=== PATIENT | male | born 1980 | race Caucasian/White ===

== ENCOUNTER → 2021-03-02 | Outpatient (CLI) | payer OTHER ==
--- NOTE | 2021-03-06 08:18 | PF ---
[place] [address] PULMONARY FUNCTION REPORT Name: GABINO ESPINO Room: [facility].#: [id number] Admission: 03/02/21 Attend Phys: Silvio Horta MD Discharge: Date of : 76 Report #: [id number] THIS REPORT FOR: cc: Jocelyn Billings MD, Mary S. MD Pervez, Adeel MD ~ DOC #: [id number] Prasanna Gonzalez MD DATE OF VISIT: 03/02/2021 The FEV1/FVC ratio is normal at 75% with an FVC normal at 112%. The FEV1 is normal at 106%. The FEF 25-75 is also normal at 101%. After the administration of a bronchodilator, there is no significant increase in any of these values. The patient's post-bronchodilator FEV1 is 5.01 liters. Only a spirometry was performed. IMPRESSION: Normal spirometry. Prasanna Gonzalez MD AP/JAT <ELECTRONICALLY SIGNED> By: Prasanna Gonzalez MD 03/06/21 [id number] Gonzalez MD /nt
== END ==
LOC: M.PUL 09:45
PROVIDERS: ATTEND Orthopaedic Surgery
DX: M47.812 Spondylosis without myelopathy or radiculopathy, cervical region (principal); M25.532 Pain in left wrist; M25.531 Pain in right wrist; M19.012 Primary osteoarthritis, left shoulder; M19.011 Primary osteoarthritis, right shoulder; M25.512 Pain in left shoulder; M25.511 Pain in right shoulder; M25.552 Pain in left hip; M16.12 Unilateral primary osteoarthritis, left hip; M79.642 Pain in left hand; M79.641 Pain in right hand; M19.042 Primary osteoarthritis, left hand; M19.041 Primary osteoarthritis, right hand; J45.909 Unspecified asthma, uncomplicated; R06.02 Shortness of breath; M54.2 Cervicalgia

== ENCOUNTER → 2021-03-31 | Outpatient (CLI) | payer OTHER | LOC: M.RAD 08:15 | PROVIDERS: ATTEND Orthopaedic Surgery | DX: M13.80 Other specified arthritis, unspecified site (principal) ==